=== PATIENT | male | born 1975 | race Caucasian/White ===

== ENCOUNTER 2019-02-16 11:39 | Inpatient (IN) | payer SELFPAY ==
[~2019-02-16] VITALS: Ht 172.7 cm; Wt 66.2 kg
--- NOTE | 2019-02-16 11:39 | NUR ---
Patient BIBA BLS, transferred to bed 12. RN evaluating patient at bedside.
[2019-02-16 11:48] VITALS: BP 140/82
--- NOTE | 2019-02-16 11:49 | NUR ---
BIBA FOR ALTERED MENTAL STATUS. PER [facility], AMBULANCE WAS CALLED BY PD, PT WAS FOUND SLEEPING IN PARKING LOT IN [place]. PT GAIT STEADY, SPEECH IS CLEAR. PT IS COOPERATIVE BUT IS NOT SPEEKING IN FULL SENTENCES. SPEECH IS CLEAR, AAOX1. PERRLA, BRISK 3 MM. NO FACIAL DROOPING. R UPPER EXTREMITY WEAKNESS. PT STATES HE HAS HAD WEAKNESS TO R UPPER EXTREMITY SINCE 21 Y.O. EQUAL BONG STRENGTH TO LOWER EXTREMITY. NO SOB NOTED. PLACED ON ACCOUNTANT AUDITOR. HOB UP. BED SIDE RAILS UP X2. ON LOW BED POSITION, LOCKED. ER MADE AWARE OF PT STATUS. WILL CONTINUE TO MONITOR.
[2019-02-16 13:26] LABS: BASOPHILS % (AUTO) 0.3 % (0.0-2.0); EOSINOPHILS # (AUTO) 0.1 K/uL (0-0.4); EOSINOPHILS % (AUTO) 0.4 % (0.0-4.0); HEMATOCRIT 43.8 % (36-52); HEMOGLOBIN 14.6 g/dL (12.0-18.0); LYMPHOCYTES # (AUTO) 1.5 K/uL (2.0-11.5); LYMPHOCYTES % (AUTO) 8.8 % (20.5-51.1); MEAN CORPUSCULAR HEMOGLOBIN 29 pg (27-31); MEAN CORPUSCULAR HGB CONC 33 g/dL (33-37); MEAN CORPUSCULAR VOLUME 86.4 fL (80-94); NEUTROPHILS # (AUTO) 14.5 K/uL (1.8-7.7); NEUTROPHILS % (AUTO) 84.5 % (42.2-75.2); PLATELET COUNT (AUTO) 263 K/uL (140-450); RED BLOOD CELL COUNT(AUTO) 5.07 MIL/uL (4.20-6.10); RED CELL DISTRIBUTION WIDTH 13.7 % (11.6-13.7); WHITE BLOOD COUNT (AUTO) 17.2 K/uL (4.8-10.8)
[2019-02-16 13:36] LABS: ANION GAP 14.4 (8-16); POTASSIUM 3.4 mmol/L (3.5-5.1)
[2019-02-16 13:42] LABS: TOTAL BILIRUBIN 1.1 mg/dL (0.0-1.0)
--- NOTE | 2019-02-16 13:45 | NUR ---
PT GOING TO CT AT THIS TIME.
--- NOTE | 2019-02-16 14:10 | NUR ---
PT UNABLE TO PROVIDE URINE SAMPLE, BRANDO NAIK MADE AWARE. BRANDO NAIK STATED TO CATH PT. STRAIGHT CATH WITH 14FR, 100ML OF CLEAR YELLOW URINE OBTAINED. PT TOLERATED WELL.
[2019-02-16 14:24] LABS: PROTHROMBIN TIME 10.5 secs (10.8-13.4)
[2019-02-16] MEDS ORDERED: NACL 0.9% 1,000 ML IV ONE (15:00)
[2019-02-16 15:16] LABS: APPEARANCE,URINE CLEAR (CLEAR); BILIRUBIN,URINE 2+ (NEGATIVE); BLOOD, URINE NEGATIVE (NEGATIVE); COLOR,URINE YELLOW (YELLOW); LEUKOCYTE ESTERASE ,URINE NEGATIVE (NEGATIVE); NITRITE, URINE NEGATIVE (NEGATIVE); UGLUCOSE NEGATIVE (NEGATIVE)
[2019-02-16] MEDS ORDERED: PIPERACILLIN/TAZOBACTAM 3.375 GM in DEXTROSE 5% 50 ML IV ONE (15:40)
[2019-02-16] MEDS ORDERED: VANCOMYCIN 1,000 MG in DEXTROSE 5% 250 ML IV ONE (15:40)
[2019-02-16] MEDS ORDERED: PIPERACILLIN/TAZOBACTAM 3.375 GM VIAL IV ONE (15:52)
--- NOTE | 2019-02-16 16:40 | NUR ---
PT TOOK OFF IV AND STARTED PUTTING ON PERSONAL CLOTHINGS. PT TEACHING OF RISKS OF LEAVING THE FACILITY WITHOUT THE PROPER CARE X3. NOTIFIED DR GONZALEZ. PER DR GONZALEZ, PT CANNOT LEAVE DUE TO UNRESOLVED UNDERLYING CAUSE OF ALTERED MENTATION. PT ALERT AND ORIENTED X 1. NON VERBAL. PT WAS MAKING A LOT EYE CONTACT AND HIT THE BED. CALLED SECURITY FOR STANDBY. PT WAS ABLE TO CALM DOWN WHEN OFFERED FOOD. PT IS AT THE BEDSIDE EATING. APPEARS CALM AT THIS TIME. WILL CONTINUE TO MONITOR.
--- NOTE | 2019-02-16 17:10 | NUR ---
PT STARTED TO WALK OUT OF HIS ROOM. PT WAS REDIRECTED BACK TO BED. PT WAS OFFERED WASHCLOTH AND WARM WATER TO CLEAN HIMSELF. PT IS AT BEDSIDE AND CALM RIGHT NOW. WILL CONTINUE OT MONITOR.
--- NOTE | 2019-02-16 18:10 | NUR ---
PT REFUSED TO HAVE HIS VITAL SIGNS TAKEN AT THIS TIME.
[2019-02-16] MEDS ORDERED: ACETAMINOPHEN 325 MG TAB PO PRN (18:35)
[2019-02-16] MEDS ORDERED: DOCUSATE SODIUM 100 MG GELCAP PO PRN (18:35)
[2019-02-16] MEDS ORDERED: HYDROcodone/APAP 7.5/325 MG 1 TAB PO PRN (18:35)
[2019-02-16] MEDS ORDERED: MORPHINE SULFATE 2 MG/ML SYR IVP PRN (18:35)
[2019-02-16] MEDS ORDERED: ONDANSETRON 4 MG/2 ML VIAL IM/IVP PRN (18:35)
--- NOTE | 2019-02-16 19:01 | NUR ---
ADMITTED A 43 Y/O MALE FROM WITH C/C OF ALTERED MENTAL STATUS VIA GURNEY. PATIENT ABLE TO TRANSFERRED TO BED WITH STAND BY ASSIST. SKIN INTACT. EXPLAINED PLAN OF CARE.. PATIENT UNABLE TO ASSESS AND NOT ANSWERING TO QUESTIONS. MRSA NASAL SWAB DONE. PERSONAL BELONGINGS AT BEDSIDE. FALL PRECAUTION APPLIED. CALL LIGHT WITHIN REACH. ROUTINE ADMISSION CARE DONE AND CARRY OUT ORDERS. ALL NEEDS ATTENDED. WILL CONTINUE TO MONITOR.
--- NOTE | 2019-02-16 19:03 | NUR ---
RECEIVED BEDSIDE REPORT FROM ER NURSE. PATIENT IS AWAKE. HE IS NONVERBAL. ONLY ANSWERS QUESTIONS W YES OR NO NODDING. MED SURE PATIENT. IV ON L FA 22G SL. CLEAN, DRY AND INTACT. PATIENT IS FALL RISK, D/T UNABLE TO VERBALIZE NEEDS. SKIN IS INTACT. PATIENT IS INCONTINENT. REFUSING TO WEAR HOSPITAL GOWN AT THIS TIME. CALL LIGHT WITHIN REACH. BED IN LOW POSITION. WILL CONTINUE TO MONITOR THE PATIENT.
--- NOTE | 2019-02-16 19:05 | NUR ---
Patient will be admitted to care of [facility]. Admited to MED/SURG VIA WHEELCHAIR. Will go to room 110B. Belongings list completed. Report to EVELIN SEGURA. UNABLE TO OBTAIN RECENT SET OF VITALS BECAUSE PT REFUSED. PT STILL NON-VERBAL
--- NOTE | 2019-02-16 19:10 | NUR ---
GAVE BEDSIDE REPORT TO STREET PHOTOGRAPHER NURSE. PATIENT ENDORSED IN STABLE CONDITION
[2019-02-16] MEDS ORDERED: POTASSIUM CHLORIDE 20% 40 MEQ/15 ML UDC PO ONE (19:35)
[2019-02-16 19:42] LABS: BARBITURATE, URINE NEG. ng/ml (NEG <=200); BENZODIAZEPINE, URINE NEG. ng/mL (NEG <=200); CANNABINOID, URINE POS. ng/mL (NEG <=50); COCAINE, URINE NEG. ng/mL (NEG <=300); OPIATE, URINE NEG. ng/mL (NEG <=2000); PHENCYCLIDINE SCREEN,URINE NEG. ng/mL (NEG <=25)
[2019-02-16] MEDS ORDERED: PROMETHAZINE DM 6.25/15MG-5ML ORASYR PO PRN (19:50)
[2019-02-16 20:07] LABS: CHOL/HDL RATIO 2.1 (1-4.5); MAGNESIUM 2.1 mg/dL (1.8-2.4); PHOSPHORUS 2.4 mg/dL (2.5-4.9)
[2019-02-16 20:08] LABS: FREE T4 (FREE THYROXINE) 1.13 ng/dL (0.76-1.46); THYROID STIMULATING HORMONE 0.54 uIU/mL (0.34-3.74)
[2019-02-16] MEDS: NACL 0.9% 1,000 ML IV SCH (20:20)
--- NOTE | 2019-02-16 20:35 | NUR ---
PATIENT REFUSED BLOOD DRAW PER MOTOR VEHICLES INSPECTOR ELIZABETH. EXPLAINED THE IMPORTANCE TO THE PATIENT ,NO RESPONSE.
--- NOTE | 2019-02-16 20:35 | NUR ---
DR. SOPHIE ROCKWELL.
[2019-02-16] MEDS: LACTULOSE 20 GM/30 ML UDC PO SCH ×2 (21:00→21:42)
[2019-02-16] MEDS: SODIUM PHOS / POTASSIUM PHOS 1 PKT PDR PO SCH ×2 (21:00→21:42)
--- NOTE | 2019-02-16 21:00 | NUR ---
PATIENT REFUSE TO TAKE MEDICATION. DR. SOPHIE ROCKWELL.
--- NOTE | 2019-02-16 21:45 | NUR ---
PATIENT REFUSE X-RAY .DR. SOPHIE ROCKWELL.
[2019-02-16] MEDS: POTASSIUM CHLORIDE 20% 40 MEQ/15 ML UDC ONE ×2 (22:00→22:04)
[2019-02-17] VITALS: BP 124/76
--- NOTE | 2019-02-17 02:00 | NUR ---
SEEN PATIENT ASLEEP. NO S/S OF DISTRESS. ALL NEEDS ATTENDED. CALL LIGHT WITHIN REACH.
--- NOTE | 2019-02-17 05:35 | NUR ---
PATIENT REFUSED BLOOD DRAW PER AIR DIRECTOR. DR. BARRIOS AWARE. WILL CONTINUE TO MONITOR.
[2019-02-17] MEDS: PIPER/TAZO 3.375GM/D5W PREMIX 50 ML IV SCH ×3 (05:45→21:22)
[2019-02-17] MEDS ORDERED: PIPERACILLIN/TAZOBACTAM 3.375 GM VIAL IV ONE (05:52)
--- NOTE | 2019-02-17 07:20 | NUR ---
ENDORSEMENT GIVEN TO AM SHIFT RN AT BEDSIDE. CALL LIGHT WITHIN REACH. PATIENT IN STABLE CONDITION.
--- NOTE | 2019-02-17 07:30 | NUR ---
RECEIVED PT ON BED AWAKE AND ALERT, REFUSED TO TALK, ON ANSWERS TO YES AND NO QUESTIONS. NO SOB NOTED. NO C/O PAIN AT THIS TIME. IV TO LT HAND PATENT AND INTACT. CHEST CLEAR. ABDOMEN SOFT, BOWEL SOUNDS PRESENT. INSTRUCTED PT TO CALL FOR ASSISTANCE. CALL LIGHT WITHIN REACH, PT REFUSED TO ANSWER. BED ON LOWEST POSITION WITH 3 SIDE RAILS RAISED UP.
[2019-02-17 08:00] VITALS: BP 101/58
--- NOTE | 2019-02-17 08:28 | NUR ---
PATIENT HAS BEEN SCREENED AND CATEGORIZED LOW NUTRITION RISK. PATIENT WILL BE SEEN WITHIN 7 DAYS OF ADMISSION. 02/22/[address]
--- NOTE | 2019-02-17 08:45 | NUR ---
PT ABLE TO WALK TO THE BATHROOM WITH STEADY GAIT. ACTIVITY TOLERATE WELL.
[2019-02-17] MEDS: LACTOBACILLUS RHAMNOSUS GG 1 EACH CAP PO SCH (09:00)
--- NOTE | 2019-02-17 09:00 | NUR ---
PT REFUSED TO TAKE HIS SCHEDULED MEDICATION. RISKS AND BENEFITS EXPLAINED TO PT, PT NODDED.
--- NOTE | 2019-02-17 10:00 | NUR ---
PT REFUSED BLOOD DRAW. DR. SOMMER MADE AWARE.
[2019-02-17] MEDS: NACL 0.9% 1,000 ML IV SCH ×2 (10:02→19:32)
--- NOTE | 2019-02-17 12:05 | NUR ---
PT CONSUMED 100% 0F BREAKFAST AND LUNCH, FOOD TOLERATED WELL.
[2019-02-17] MEDS ORDERED: HALOPERIDOL IM 5 MG/ML VIAL IM SCH (13:00)
[2019-02-17] MEDS ORDERED: HALOPERIDOL IM 5 MG/ML VIAL IM PRN (13:20)
--- NOTE | 2019-02-17 14:30 | NUR ---
PT SEEN BY DR. MELGOZA WITH NEW ORDERS. PT IS CALM, NO AGITATION NOTED. PT STILL NOT TALKING TO ANYBODY INCLUDING THE PSYCHIATRIST.
[2019-02-17] MEDS ORDERED: CITALOPRAM 20 MG TAB PO SCH (14:44)
[2019-02-17] MEDS ORDERED: risperiDONE 1 MG TAB PO SCH (14:44)
--- NOTE | 2019-02-17 15:15 | NUR ---
PT REFUSED TO TAKE THE ORAL MEDS AT FIRST BUT SHOWING NO BY MOVING HEAD FROM SIDE TO SIDE FOR THE HALDOL INJECTION. PT NODDED HEAD AND THEN TOOK THE PILLS INSTEAD. PT WAS ABLE TO TAKE CELEXA AND RISPERDAL PO ORDERED WITH NO PROBLEM SWALLOWING. PT STILL NOT SPEAKING TO ANYBODY BUT CAN FOLLOW COMMANDS WHEN HE WANTED TO, NO HEARING PROBLEMS NOTED. WILL CONTINUE TO MONITOR PT'S BEHAVIOR.
[2019-02-17 16:00] VITALS: BP 114/70
--- NOTE | 2019-02-17 16:30 | NUR ---
PT AWAKE, WATCHING TV. NO SOB NOTED. NO COMPLAINTS MADE.
--- NOTE | 2019-02-17 18:10 | NUR ---
PT CONSUMED 100% ON ALL MEALS. NO COMPLAINTS MADE.
--- NOTE | 2019-02-17 18:57 | NUR ---
PT RESTING. NO SOB NOTED, NO SIGNS OF PAIN. WILL ENDORSE TO NEXT SHIFT NURSE FOR CONTINUITY OF CARE.
--- NOTE | 2019-02-17 19:15 | NUR ---
RECEIVED PATIENT RESTING IN BED QUIETLY. RESPIRATION EVEN AND UNLABORED. PATIENT ABLE TO FOLLOW SIMPLE COMMANDS. ALL PRECAUTIONARY MEASURES APPLIED. CALL LIGHT WITHIN REACH.
--- NOTE | 2019-02-17 21:00 | NUR ---
V/S TAKEN. SCHEDULE MEDICATION GIVEN. PATIENT BACK TO SLEEP RIGHT AWAY. NO S/S OF DISTRESS NOTED. WILL CONTINUE TO MONITOR.
[2019-02-17] MEDS: LACTULOSE 20 GM/30 ML UDC PO SCH (21:08)
[2019-02-17] MEDS: risperiDONE 1 MG TAB PO SCH (21:08)
--- NOTE | 2019-02-17 23:30 | NUR ---
PATIENT REFUSED X-RAY TO BE DONE PER X-RAY TECH. DR. ORVILLE ROCKWELL.
[2019-02-18] VITALS: BP 113/69
--- NOTE | 2019-02-18 | NUR ---
CHECKED PATIENT RESTING COMFORTABLE IN BED. SEEN CHEST RISE AND FALL. NO S/S OF DISTRESS NOTED AT THIS TIME. CALL LIGHT WITHIN REACH.
--- NOTE | 2019-02-18 02:00 | NUR ---
SEEN PATIENT ASLEEP. NO S/S OF DISTRESS NOTED AT THIS TIME. BED IN LOW LOCKED POSITION. CALL LIGHT WITHIN REACH.
[2019-02-18] MEDS: NACL 0.9% 1,000 ML IV SCH ×2 (03:20→17:34)
--- NOTE | 2019-02-18 04:00 | NUR ---
SEEN PATIENT RESTING. WILL CONTINUE TO MONITOR.
[2019-02-18] MEDS: PIPER/TAZO 3.375GM/D5W PREMIX 50 ML IV SCH ×4 (05:01→21:06)
--- NOTE | 2019-02-18 06:45 | NUR ---
REFUSED US ABDOMEN PER REJI TECH. DR. JACINTO AWARE AND RESUME REGULAR DIET PER .
--- NOTE | 2019-02-18 07:25 | NUR ---
ENDORSEMENT GIVEN TO AM SHIFT NURSE AT BEDSIDE. PATIENT IN STABLE CONDITION.
--- NOTE | 2019-02-18 07:30 | NUR ---
RECEIVED PT ON BED AWAKE AND ALERT, STILL REFUSING TO TALK, BUT FOLLOWS SIMPLE COMMANDS. NO SOB NOTED. NO C/O PAIN AT THIS TIME. IV TO LT HAND PATENT AND INTACT. CHEST CLEAR. ABDOMEN SOFT, BOWEL SOUNDS PRESENT. BED ON LOWEST POSITION WITH 3 SIDE RAILS RAISED UP. INSTRUCTED PT TO CALL FOR ASSISTANCE. CALL LIGHT WITHIN REACH, PT REFUSED TO ANSWER YES OR NO BUT NODDED. WILL CONTINUE TO MONITOR PT.
[2019-02-18 07:56] VITALS: BP 107/63
[2019-02-18 08:00] VITALS: BP 133/81
--- NOTE | 2019-02-18 08:00 | NUR ---
PT REFUSED BLOOD WORKS, XRAY AND ABDOMINAL ULTRASOUND. RISKS AND CONSEQUENCES EXPLAINED TO PT. PT STILL NOT TALKING, JUST MOVING HEAD FROM SIDE TO SIDE. DR. SOMMER NOTIFIED.
--- NOTE | 2019-02-18 08:30 | NUR ---
pt consumed 100% of breakfast served. food tolerated well.
[2019-02-18] MEDS: LACTULOSE 20 GM/30 ML UDC PO SCH ×2 (09:00→20:34)
[2019-02-18] MEDS: CITALOPRAM 20 MG TAB PO SCH (10:16)
[2019-02-18] MEDS: risperiDONE 1 MG TAB PO SCH ×2 (10:17→20:33)
[2019-02-18] MEDS: LACTOBACILLUS RHAMNOSUS GG 1 EACH CAP PO SCH (10:17)
--- NOTE | 2019-02-18 10:30 | NUR ---
pt able to take most of scheduled medications. meds swallowed well by pt with no problem. pt refused lactulose. risks and benefits explained.
--- NOTE | 2019-02-18 12:30 | NUR ---
pt consumed 100% of breakfast and lunch, food tolerate well.
--- NOTE | 2019-02-18 14:05 | NUR ---
pt resting. no SOB noted. no signs of pain.
[2019-02-18 16:00] VITALS: BP 133/81
--- NOTE | 2019-02-18 16:00 | NUR ---
pt awake, watching tv. no complaints made. offered pt to take shower. pt did not respond, just stared
--- NOTE | 2019-02-18 18:48 | NUR ---
pt awake, watching tv. no complaints made. will endorse to next shift nurse for continuity of care.
--- NOTE | 2019-02-18 19:10 | NUR ---
RECEIVED REPORT FROM DAY SHIFT NURSE TERENCE-RN AT BEDSIDE. PT RESTING IN BED, AOX1- NON-VERBAL, ON ROOM AIR WITH LEFT HAND #20G. DISCUSSED PLAN OF CARE HOWEVER PT DID NOT VERBALIZED UNDERSTANDING. BED IN LOWEST POSITION, BED BREAKS ON, BOTH SIDE RAILS UP AND FALL PRECAUTIONS IN PLACE. PT REFUSES TO WEAR GOWN. BEDSIDE TABLE AND CALL LIGHT ARE WITHIN REACH. WILL CONTINUE TO MONITOR.
[2019-02-18 20:00] VITALS: BP 137/87
--- NOTE | 2019-02-18 20:00 | NUR ---
VITAL SIGNS TAKEN AND TOLERATED WELL. NO S/S OF RESPIRATORY DISTRESS OR DISCOMFORT NOTED AT THIS TIME. WILL CONTINUE TO MONITOR.
--- NOTE | 2019-02-18 21:06 | NUR ---
SCHEDULED MEDICATION ZOSYN GIVEN AND TOLERATED WELL. PT REFUSING ALL ORAL MEDICATIONS. NO S/S OF RESPIRATORY DISTRESS OR DISCOMFORT NOTED AT THIS TIME. WILL CONTINUE TO MONITOR.
--- NOTE | 2019-02-18 21:38 | NUR ---
X-RAY OF WRIST TAKEN HOWEVER PT REFUSED TO TAKE OFF JACKET THAT HAS METAL IN IT FOR X-RAY.
--- NOTE | 2019-02-18 22:00 | NUR ---
PT CONTINUES TO SLEEP IN BED. NO S/S OF RESPIRATORY DISTRESS OR DISCOMFORT NOTED AT THIS TIME. WILL CONTINUE TO MONITOR.
--- NOTE | 2019-02-19 | NUR ---
PT REFUSED VITAL SIGNS. NO S/S OF RESPIRATORY DISTRESS OR DISCOMFORT NOTED AT THIS TIME. WILL CONTINUE TO MONITOR.
--- NOTE | 2019-02-19 02:00 | NUR ---
PT SLEEPING IN BED. NO S/S OF RESPIRATORY DISTRESS OR DISCOMFORT NOTED AT THIS TIME. WILL CONTINUE TO MONITOR.
[2019-02-19] MEDS: PIPER/TAZO 3.375GM/D5W PREMIX 50 ML IV SCH ×3 (04:14→20:19)
--- NOTE | 2019-02-19 04:14 | NUR ---
SCHEDULED MEDICATION ZOSYN GIVEN AND TOLERATED WELL. NO S/S OF RESPIRATORY DISTRESS OR DISCOMFORT NOTED AT THIS TIME. WILL CONTINUE TO MONITOR.
--- NOTE | 2019-02-19 06:00 | NUR ---
PT CONTINUES TO SLEEP IN BED. NO S/S OF RESPIRATORY DISTRESS OR DISCOMFORT NOTED AT THIS TIME. WILL CONTINUE TO MONITOR.
--- NOTE | 2019-02-19 06:56 | NUR ---
PT CONTINUES TO REFUSE SHOULDER XRAY.
--- NOTE | 2019-02-19 07:14 | NUR ---
ENDORSED PT CARE TO DAY SHIFT NURSE DINA FOR CONTINUITY OF CARE.
--- NOTE | 2019-02-19 07:19 | NUR ---
RECEIVED PT FROM BOOK SOLICITOR NURSEKALLIE, PT IS AWAKE AND LYING ON THE BED, WITH SIDE RAILS UP AND CALL, LIGHT WITHIN REACH, PT HAS A IV LINE ON THE LEFT HAND G.20 WITH NS AT 80ML/HR, INFUSING AND INTACT. NO SIGN OF DISTRESS NOTED AN WILL MONITOR PT.
[2019-02-19] MEDS: NACL 0.9% 1,000 ML IV SCH ×2 (07:27→20:18)
[2019-02-19 08:00] VITALS: BP 122/84
--- NOTE | 2019-02-19 08:00 | NUR ---
PT IS AWAKE AND SEATED ON THE BED, EATING HIS BREAKFAST, PT IS COMPLIANT AND AGREED TO HAVE A VITAL SIGNS WAS CHECKED AND IS WITHIN NORMAL LIMIT. DR. SIMPSON AND THE RESIDENT DOCTORS MADE THEIR ROUNDS, DR. SIMPSON SPOKE TO PT BUT PT REMAINED SILENT AND DID NOT RESPOND TO MD. NO SIGN OF DISTRESS NOTED AND WILL MONITOR PT.
[2019-02-19] MEDS: LACTULOSE 20 GM/30 ML UDC PO SCH ×2 (09:00→20:21)
--- NOTE | 2019-02-19 10:20 | NUR ---
TRES, LNE TALKING TO PT NOW.
[2019-02-19] MEDS: risperiDONE 1 MG TAB PO SCH ×2 (10:24→20:19)
[2019-02-19] MEDS: CITALOPRAM 20 MG TAB PO SCH (10:24)
[2019-02-19] MEDS: LACTOBACILLUS RHAMNOSUS GG 1 EACH CAP PO SCH (10:24)
--- NOTE | 2019-02-19 10:26 | NUR ---
PT IS AWAKE AND COMPLIED TO TAKE HIS ORAL MEDICATIONS, VITAL SIGNS CHECKED AND IS WITHIN NORMAL LIMIT, PT TOLERATED THE MEDICATIONS AND NO SIGN OF DISTRESS NOTED. WILL MONITOR PT.
--- NOTE | 2019-02-19 10:45 | NUR ---
Dental Office Receptionist Note: I met with patient at bedside. Patient remained silent while I was present. The information I was able to obtain from him was limited since he did not speak to me. I was able to ask him questions that required yes or no responses. I introduced myself to patient and explained my role as a medical researcher. I asked him if he had understood me. He gave me the thumbs up. He gave me the thumbs ups to the following questions. If he was homeless, if was able to comprehend what I was asking him. He gave me the thumbs downs to the following questions. If he had income or had health insurance coverage, if he had family, if he was able to write, and if he was able to speak. I provided him with a list of homeless shelters, food [place], and other services for individuals who are homeless. Ship Pilot and/or Electric Locomotive Crane Operator will follow up as needed.
--- NOTE | 2019-02-19 12:39 | NUR ---
PT IS AWAKE AND LYING ON THE BED, WAS INFORMED THAT ZOSYN IV PB WILL BE GIVEN BUT PT JUST GAVE A BLANK LOOK, MEDICATION WAS GIVEN AND PT TOLERATED IT. WILL MONITOR PT.
[2019-02-19 16:00] VITALS: BP 114/68
--- NOTE | 2019-02-19 17:15 | NUR ---
PT IS AWAKE AND LYING ON THE BED, WATCHING TV, VITAL SIGNS CHECKED AND BP IS114/68, PULSE IS 79, TEMPERATURE IS 98.4, O2 SATURATION IS 97%AND RESPIRATION IS EVEN AT A RATE OF 16/MIN. NO SIGN OF DISTRESS NOTED AND WILL CONTINUE TO MONITOR.
--- NOTE | 2019-02-19 19:12 | NUR ---
ENDORSED PT TO SENIOR CENTER DIRECTOR NURSEMANUELITO FOR CONTINUITY OF CARE, PT IS AWAKE AND LYING ON THE BED.
--- NOTE | 2019-02-19 19:13 | NUR ---
RECEIVED BEDSIDE REPORT FROM DAY SHIFT RN. PT IS AAOX4. ON NC 1L. RESPIRATIONS ARE EQUAL AND UNLABORED. PT HAS PICC LINE ON R UPPER ARM DOUBLE LUMEN. PTN INFUSING AT 80ML/H LAST BAG. DEXTROSE 10 AT 30ML/HR. PT ON CLEAR LIQUID DIET ADVANCE TO FULL LIQUID FOR TOMORROW. SKIN INTACT. FOAM DRESSING ON SACRAL FOR PREVENTION. PT IS INCONTINENT. ON CONTACT,FALL,SZ PRECAUTION. PLAN OF CARE DISCUSSED WITH PT. CALL LIGHT WITHIN REACH. Addendum: 02/19/19 at 1951 by Lainey Mathis RN WRONG PATIENT
--- NOTE | 2019-02-19 19:14 | NUR ---
RECEIVED BEDSIDE REPORT FROM DAY SHIFT RN. PT IS RESTING COMFORTABLY IN BED. DOES NOT RESPOND ONLY USES GESTURES. RESPIRATIONS ARE EQUAL AND UNLABORED ON ROOM AIR. IV ON L HAND 20G NS AT 80ML/H. SKIN INTACT PER NURSE. PER NURSE PT HAS BEEN REFUSING PROCEDURES BLOOD DRAW AND SOME PO MEDS. PLAN OF CARE DISCUSSED WITH PT. WILL CONTINUE TO MONITOR.
--- NOTE | 2019-02-19 20:19 | NUR ---
DUE MEDICATION GIVEN. PT TOLERATED WELL. ALL NEEDS MET AT THIS TIME. HAVEN'T HEARD PT SPEAK. ONLY SHAKES HEAD WHEN ASKED QUESTIONS. WILL CONTINUE TO MONITOR.
--- NOTE | 2019-02-19 22:12 | NUR ---
IV LEAKING REMOVED. IV CATH INTACT. NEW IV STARTED ON R FA 22G.
[2019-02-20] VITALS: BP 111/58
--- NOTE | 2019-02-20 | NUR ---
VITAL SIGNS ARE STABLE. NO S/S OF DISTRESS. ALL NEEDS MET AT THIS TIME. CALL LIGHT WITHIN REACH. WILL CONTINUE TO MONITOR.
--- NOTE | 2019-02-20 01:51 | NUR ---
PT SLEEPING COMFORTABLY IN BED. SAFETY MEASURES ARE IN PLACE. CALL LIGHT WITHIN REACH.
[2019-02-20] MEDS: PIPER/TAZO 3.375GM/D5W PREMIX 50 ML IV SCH ×2 (04:06→13:12)
--- NOTE | 2019-02-20 04:27 | NUR ---
PT SLEEPING. NO S/S OF DISTRESS. ALL NEEDS MET AT THIS TIME. CALL LIGHT WITHIN REACH. WILL CONTINUE TO MONITOR.
--- NOTE | 2019-02-20 07:25 | NUR ---
GAVE BEDSIDE REPORT TO DAY SHIFT RN. PT ENDORSED IN STABLE CONDITION.
--- NOTE | 2019-02-20 07:30 | NUR ---
RECEIVED PT FROM GARMENT MENDER NURSEMANUELITO, PT IS AWAKE AND LYING ON THE BED, WITH AN IV LINE ON THE RT FA G.22 WITH NS INFUSING AT 80ML/HR, INTACT, SIDE RAILS ARE UP AND CALL LIGHT WITHIN REACH, PT IS TALKS MINIMAL AND NO SIGN OF DISTRESS NOTED. WILL CONTINUE TO MONITOR PT.
[2019-02-20 08:00] VITALS: BP 118/83
--- NOTE | 2019-02-20 08:15 | NUR ---
PT IS AWAKE AND LYING ON THE BED, ATTEMPTED TO DO VIATL SIGN CHECKED BU PT REFUSED BY HEAD AND HAND SIGN. WILL MONITOR PT.
[2019-02-20] MEDS: LACTULOSE 20 GM/30 ML UDC PO SCH (09:00)
[2019-02-20] MEDS: NACL 0.9% 1,000 ML IV SCH (10:02)
[2019-02-20] MEDS: risperiDONE 1 MG TAB PO SCH (10:09)
[2019-02-20] MEDS: CITALOPRAM 20 MG TAB PO SCH (10:09)
[2019-02-20] MEDS: LACTOBACILLUS RHAMNOSUS GG 1 EACH CAP PO SCH (10:09)
--- NOTE | 2019-02-20 10:11 | NUR ---
PT IS AWAKE, LYING ON THE BED, VITAL SIGNS CHECKED AND BP IS 118/83, PULSE IS 71, O2 SATURATION IS 98%, AND TEMPERATURE IS 97.7, RESPIRATION IS EVEN AT 16/MIN, ORAL MEDICATIONS WERE GIVEN AND PT TOLERATED IT. PT REFUSED TO TAKE THE LACTULOSE. NO SIGN OF DISTRESS NOTED AND WILL MONITOR PT.
[2019-02-20] MEDS ORDERED: CITA20TA15 PO (11:38)
[2019-02-20] MEDS ORDERED: RIS1 PO (11:38)
[2019-02-20] MEDS ORDERED: AMOX-999 PO (11:39)
--- NOTE | 2019-02-20 13:15 | NUR ---
PT IS AWAKE AND SEATED ON THE BED, EATING, IV ZOSYN WAS GIVEN VIA IVPB AND PT TOLERATED IT. NO SIGN OF DISTRESS NOTED AND WILL MONITOR PT.
[2019-02-20 16:00] VITALS: BP 115/85
--- NOTE | 2019-02-20 16:20 | NUR ---
DISCHARGED PT VIA WHEELCHAIR AND WHEELED TO THE FRONT LOBBY, DISCHARGE TEACHINGS AND [id number] INSTRUCTION GIVEN TO PT AND PT NODDED A SIGN OF UNDERSTANDING, IV LINE AND ARM BAND REMOVED. VITAL SIGNS CHECKED AND PT IS STABLE TO GO HOME.
== END 2019-02-20 16:20 | disposition home or self-care (01) | DRG 917 ==
LOC: MED 11:39 → MTU 18:39
PROVIDERS: ADMIT General Practice; ATTEND General Practice
DX: T43.621A Poisoning by amphetamines, accidental (unintentional), initial encounter (principal); N17.0 Acute kidney failure with tubular necrosis; G92 Toxic encephalopathy; K72.90 Hepatic failure, unspecified without coma; E87.6 Hypokalemia; E83.39 Other disorders of phosphorus metabolism; Z59.0 Homelessness; F32.9 Major depressive disorder, single episode, unspecified; F29 Unspecified psychosis not due to a substance or known physiological condition; Y92.89 Other specified places as the place of occurrence of the external cause; E80.6 Other disorders of bilirubin metabolism; Z71.51 Drug abuse counseling and surveillance of drug abuser; F12.10 Cannabis abuse, uncomplicated; E86.0 Dehydration
CPT/HCPCS: 36415; 36600; 70450; 71045; 73100; 80053; 80305; 81003; 82140; 82150; 82550; 82553; 82803; 83036; 83605; 83615; 83690; 83735; 83874; 83880; 84100; 84439; 84443; 84484; 85025; 85610; 85730; 87040; 87081; 87086; 87804; 93005; 96365; 96366; 96367; 99285; C1758; J1630; J2543; J3370; J7030; J7060; Q0092